=== PATIENT | male | born 1995 | race Caucasian/White ===

== ENCOUNTER 2021-11-23 19:44 | Inpatient (IN) | payer OTHER ==
[~2021-11-23] VITALS: Ht 188 cm; Wt 78.0 kg
[2021-11-23 20:29] LABS: BASOPHILS % (AUTO) 0.4 % (0-1); EOSINOPHILS % (AUTO) 0.1 % (0-6); HEMOGLOBIN 15.5 g/dl (14.0-17.9); LYMPHOCYTES # (AUTO) 1.6 X10'3 (1.1-4.8); LYMPHOCYTES % (AUTO) 12.7 % (21-51); MEAN CORPUSCULAR HEMOGLOBIN 31.2 PG (27.0-31.0); MEAN CORPUSCULAR HGB CONC 33.7 g/dL (33.0-36.5); MEAN CORPUSCULAR VOLUME 92.4 FL (78-98); MEAN PLATELET VOLUME 8.6 FL (7.4-10.4); MONOCYTES # (AUTO) 0.8 X10'3 (0-0.9); MONOCYTES % (AUTO) 6.4 % (2-12); NEUTROPHILS # (AUTO) 10.4 X10'3 (1.8-7.7); NEUTROPHILS % (AUTO) 80.4 % (42-75); PLATELET COUNT 260 X10'3 (140-440); RED BLOOD COUNT 4.98 X10'6 (4.70-6.10); RED CELL DISTRIBUTION WIDTH 12.6 % (11.5-14.5); WHITE BLOOD COUNT 12.9 X10'3 (4.5-11.0)
[2021-11-23 20:47] LABS: ALANINE AMINOTRANSFERASE 39 U/L (12-78); ALBUMIN 4.9 G/DL (3.4-5.0); ALBUMIN/GLOBULIN RATIO 1.3 (1.1-1.5); ALKALINE PHOSPHATASE 84 IU/L (46-116); ANION GAP 31 (8-16); ASPARTATE AMINO TRANSFERASE 11 U/L (10-37); BILIRUBIN,TOTAL 0.7 MG/DL (0.1-1.0); BLOOD UREA NITROGEN 12 MG/DL (7-18); BUN/CREATININE RATIO 10.1 (5.4-32.0); CALCIUM 9.6 MG/DL (8.5-10.1); CHLORIDE 95 MMOL/L (99-107); CREATININE 1.19 MG/DL (0.60-1.10); GLUCOSE 424 MG/DL (70-104); POTASSIUM 4.5 MMOL/L (3.5-5.1); SODIUM 133 MMOL/L (135-145); TOTAL PROTEIN 8.8 G/DL (6.4-8.2); eGFR 75 ML/MIN
[2021-11-23 20:53] LABS: TOTAL CARBON DIOXIDE 7.2 MMOL/L (24-32)
[2021-11-23] MEDS ORDERED: normal saline 1000ML IV soln IVB ONE ×2 (21:00→21:05)
[2021-11-23] MEDS ORDERED: Insulin Reg/NS 100units/100mL 100 ML IV PRN (21:05)
[2021-11-23] MEDS ORDERED: ondansetron/PF 4mg/2ml inj IV ONE (21:05)
[2021-11-23] MEDS ORDERED: insulin regular, human 10 units/0.1 ml syringe IV ONE (21:20)
[2021-11-23] MEDS ORDERED: acetaminophen 325mg tablet PO PRN (21:35)
[2021-11-23] MEDS ORDERED: mag hydrox/Alum hydrox/simeth 30ml oral suspension PO PRN (21:35)
[2021-11-23] MEDS ORDERED: magnesium 4gm in 100ml NS 100 ML IV PRN (21:35)
[2021-11-23] MEDS ORDERED: magnesium 2GM in 50ml NS 50 ML IV PRN (21:35)
[2021-11-23] MEDS ORDERED: potassium CL 10mEq/100ml bag 100 ML IV PRN (21:35)
[2021-11-23] MEDS ORDERED: ondansetron/PF 4mg/2ml inj IV PRN (21:35)
[2021-11-23] MEDS ORDERED: POTASSIUM BICARB 20meq eff tab 20 MEQ TABLET.EFF PO PRN (21:35)
[2021-11-23] MEDS ORDERED: magnesium hydroxide 30ml (MOM) UD suspension PO PRN (21:35)
[2021-11-23] MEDS ORDERED: magnesium Cl slow-release 64mg tablet PO PRN (21:35)
[2021-11-23 21:43] LABS: MAGNESIUM 1.9 MG/DL (1.5-2.4); PHOSPHORUS 4.7 MG/DL (2.3-4.5)
--- NOTE | 2021-11-23 23:06 | NUR ---
Call pharmacy to titrate Insulin drip. Per pharmacy titrate up 1 unit.
[2021-11-23 23:46] LABS: ALBUMIN 4.3 G/DL (3.4-5.0); ANION GAP 22 (8-16); BLOOD UREA NITROGEN 10 MG/DL (7-18); BUN/CREATININE RATIO 9.3 (5.4-32.0); CALCIUM 8.8 MG/DL (8.5-10.1); CHLORIDE 105 MMOL/L (99-107); CREATININE 1.08 MG/DL (0.60-1.10); GLUCOSE 215 MG/DL (70-104); POTASSIUM 3.8 MMOL/L (3.5-5.1); SODIUM 136 MMOL/L (135-145); eGFR 84 ML/MIN
[2021-11-23 23:51] LABS: TOTAL CARBON DIOXIDE 9.4 MMOL/L (24-32)
[2021-11-24] MEDS: normal saline 1000ml 1,000 ML IV SCH ×4 (00:10→18:00)
[2021-11-24 03:49] LABS: BASOPHILS % (AUTO) 0.3 % (0-1); EOSINOPHILS % (AUTO) 0.1 % (0-6); HEMATOCRIT 40.7 % (42.0-52.0); HEMOGLOBIN 13.9 g/dl (14.0-17.9); LYMPHOCYTES # (AUTO) 1.8 X10'3 (1.1-4.8); LYMPHOCYTES % (AUTO) 19.1 % (21-51); MEAN CORPUSCULAR HEMOGLOBIN 31.1 PG (27.0-31.0); MEAN CORPUSCULAR HGB CONC 34.3 g/dL (33.0-36.5); MEAN CORPUSCULAR VOLUME 90.8 FL (78-98); MONOCYTES % (AUTO) 10.8 % (2-12); NEUTROPHILS # (AUTO) 6.7 X10'3 (1.8-7.7); NEUTROPHILS % (AUTO) 69.7 % (42-75); PLATELET COUNT 204 X10'3 (140-440); RED BLOOD COUNT 4.48 X10'6 (4.70-6.10); WHITE BLOOD COUNT 9.5 X10'3 (4.5-11.0)
--- NOTE | 2021-11-24 06:15 | NUR ---
Receieved report from Iva.
--- NOTE | 2021-11-24 07:20 | NUR ---
Pt awake , resting quietly , no acute distress noted, pt continues to be monitored.
[2021-11-24] MEDS: docusate sod 100mg capsule PO SCH ×2 (07:31→20:00)
[2021-11-24 07:52] LABS: ALANINE AMINOTRANSFERASE 30 U/L (12-78); ALBUMIN 4.2 G/DL (3.4-5.0); ALBUMIN/GLOBULIN RATIO 1.1 (1.1-1.5); ALKALINE PHOSPHATASE 72 IU/L (46-116); ANION GAP 27 (8-16); ASPARTATE AMINO TRANSFERASE 13 U/L (10-37); BILIRUBIN,TOTAL 0.5 MG/DL (0.1-1.0); BLOOD UREA NITROGEN 10 MG/DL (7-18); BUN/CREATININE RATIO 9.2 (5.4-32.0); CALCIUM 8.3 MG/DL (8.5-10.1); CHLORIDE 106 MMOL/L (99-107); CREATININE 1.09 MG/DL (0.60-1.10); GLUCOSE 264 MG/DL (70-104); MAGNESIUM 1.8 MG/DL (1.5-2.4); POTASSIUM 4.6 MMOL/L (3.5-5.1); SODIUM 138 MMOL/L (135-145); TOTAL PROTEIN 8.1 G/DL (6.4-8.2); eGFR 83 ML/MIN
[2021-11-24 08:00] LABS: TOTAL CARBON DIOXIDE 5.2 MMOL/L (24-32)
[2021-11-24] MEDS: K and/or MAG REPLACEMENT MC SCH ×2 (08:00→20:32)
--- NOTE | 2021-11-24 08:09 | NUR ---
Pt's CO2 5.2, message sent to Dr Avalos .
--- NOTE | 2021-11-24 09:06 | NUR ---
Pt's blood sugar was 280mg/dl, messaged Dr Avalos to make him aware and also to ask about sliding scale.
--- NOTE | 2021-11-24 09:28 | NUR ---
paged dr alford at this time ,for dka .
--- NOTE | 2021-11-24 09:47 | NUR ---
Restarted Insulin drip as per protocol verified with Roberto ENAMORADO, Ila the charge nurse and Marcia PATEL Director made aware. Dr Avalos also messaged to make aware.
[2021-11-24] MEDS ORDERED: sodium bicarbonate (8.4%) inj. 50 MEQ in dextrose 5% water 500ml 250 ML IV PRN (10:00)
[2021-11-24] MEDS ORDERED: insulin regular, human U-100 3ml vial - multi-dose IV PRN (10:00)
[2021-11-24] MEDS ORDERED: potassium Cl 20 mEq SR tablet PO PRN ×2 (10:00)
[2021-11-24] MEDS ORDERED: potassium Cl 40MEQ/1/2NS 520ml 520 ML IV PRN ×2 (10:00)
[2021-11-24] MEDS ORDERED: sodium phosphate inj. 30 MMOL in dextrose 5%-water 250 ML IV PRN (10:00)
[2021-11-24] MEDS ORDERED: sodium phosphate inj. 15 MMOL in dextrose 5%-water 250 ML IV PRN (10:00)
[2021-11-24] MEDS ORDERED: sodium bicarbonate (8.4%) inj. 100 MEQ in dextrose 5% water 500ml 500 ML IV PRN (10:00)
--- NOTE | 2021-11-24 10:01 | NUR ---
Dr Avalos returned called,agreed for insulin drip to be restarted.
--- NOTE | 2021-11-24 10:15 | NUR ---
Pt sleeping but easily aroused, insulin drip infusing without difficulty, will continue to monitor for changes.
[2021-11-24] MEDS: Insulin Reg/NS 100units/100mL 100 ML IV SCH ×2 (10:40→16:53)
[2021-11-24 11:34] LABS: BLOOD UREA NITROGEN 10 MG/DL (7-18); BUN/CREATININE RATIO 8.1 (5.4-32.0); CALCIUM 8.2 MG/DL (8.5-10.1); CHLORIDE 104 MMOL/L (99-107); CREATININE 1.24 MG/DL (0.60-1.10); GLUCOSE 346 MG/DL (70-104); PHOSPHORUS 2.8 MG/DL (2.3-4.5); POTASSIUM 4.6 MMOL/L (3.5-5.1); SODIUM 136 MMOL/L (135-145); eGFR 72 ML/MIN
[2021-11-24 11:36] LABS: ANION GAP 27 (8-16)
[2021-11-24 11:38] LABS: TOTAL CARBON DIOXIDE < 5 MMOL/L (24-32)
--- NOTE | 2021-11-24 11:42 | NUR ---
paged dr. alford regarding critical co2 <5
--- NOTE | 2021-11-24 13:10 | NUR ---
Dr Avalos at bedside.
--- NOTE | 2021-11-24 14:11 | NUR ---
Pt reports feeling better, continues to be monitored.
--- NOTE | 2021-11-24 14:42 | NUR ---
Report given to Evelina in PCU.
[2021-11-24 15:00] VITALS: BP 136/62
[2021-11-24 15:31] LABS: ALBUMIN 3.8 G/DL (3.4-5.0); ANION GAP 16 (8-16); BLOOD UREA NITROGEN 11 MG/DL (7-18); BUN/CREATININE RATIO 8.3 (5.4-32.0); CALCIUM 8.5 MG/DL (8.5-10.1); CHLORIDE 107 MMOL/L (99-107); CREATININE 1.33 MG/DL (0.60-1.10); GLUCOSE 203 MG/DL (70-104); PHOSPHORUS 1.4 MG/DL (2.3-4.5); POTASSIUM 3.6 MMOL/L (3.5-5.1); SODIUM 136 MMOL/L (135-145); eGFR 66 ML/MIN
[2021-11-24] MEDS: potassium CL 20mEq in D5-1/2NS 1,000 ML IV PRN (16:56)
[2021-11-24] MEDS ORDERED: INSU100V43 SQ (17:28)
[2021-11-24 18:00] VITALS: BP 108/66
[2021-11-24] MEDS: Neutra Phos packet PO PRN ×2 (18:26→23:42)
--- NOTE | 2021-11-24 18:30 | NUR ---
Patient in room PCU 3023. I have received report from Evelina ENAMORADO and had the opportunity to ask questions and assume patient care.
[2021-11-24] MEDS ORDERED: K and/or MAG REPLACEMENT MC SCH (20:00)
[2021-11-24 20:10] LABS: ALBUMIN 3.6 G/DL (3.4-5.0); ANION GAP 8 (8-16); BLOOD UREA NITROGEN 11 MG/DL (7-18); BUN/CREATININE RATIO 9.6 (5.4-32.0); CALCIUM 8.4 MG/DL (8.5-10.1); CHLORIDE 105 MMOL/L (99-107); CREATININE 1.15 MG/DL (0.60-1.10); GLUCOSE 176 MG/DL (70-104); POTASSIUM 3.2 MMOL/L (3.5-5.1); SODIUM 130 MMOL/L (135-145); TOTAL CARBON DIOXIDE 16.6 MMOL/L (24-32); eGFR 78 ML/MIN
[2021-11-24] MEDS: POTASSIUM BICARB 20meq eff tab 20 MEQ TABLET.EFF PO PRN ×2 (20:30→23:42)
[2021-11-24 21:03] LABS: PHOSPHORUS 1.6 MG/DL (2.3-4.5)
[2021-11-24 22:00] VITALS: BP 95/59
--- NOTE | 2021-11-24 22:30 | NUR ---
IV fluids D5.45NS+20mEqKCL at 150cc/HR increased to 200cc/HR due to BS of 100. This is per protocol. One hour previous to this change, BS:150 and no changes were made per protocol. Phos level at 1445: 1.1. Phos replacement started. BMP and Phos@1930 1.6. MD notified. To cont. replacement of Phos per protocol. Pt somnolent, awakens w/verbal request, unable to stay awake.
[2021-11-24 23:36] LABS: ALBUMIN 3.6 G/DL (3.4-5.0); ANION GAP 7 (8-16); BLOOD UREA NITROGEN 10 MG/DL (7-18); BUN/CREATININE RATIO 10.8 (5.4-32.0); CALCIUM 8.5 MG/DL (8.5-10.1); CHLORIDE 110 MMOL/L (99-107); CREATININE 0.93 MG/DL (0.60-1.10); GLUCOSE 87 MG/DL (70-104); PHOSPHORUS 1.4 MG/DL (2.3-4.5); POTASSIUM 3.4 MMOL/L (3.5-5.1); SODIUM 136 MMOL/L (135-145); TOTAL CARBON DIOXIDE 19.3 MMOL/L (24-32); eGFR > 90 ML/MIN
[2021-11-25] MEDS ORDERED: Insulin Reg/NS 100units/100mL 100 ML IV SCH (01:00)
[2021-11-25] MEDS ORDERED: Insulin Reg/NS 100units/100mL 100 ML IV PRN (01:00)
--- NOTE | 2021-11-25 01:00 | NUR ---
Insulin Drip reduced to 3Units/HR per MD ord. following hourly Blood Sugars 2230: 101, 2320: 92, 0020: 84.
[2021-11-25 02:00] VITALS: BP 75/43
[2021-11-25] MEDS: potassium CL 20mEq in D5-1/2NS 1,000 ML IV PRN (03:56)
[2021-11-25 04:00] LABS: ALANINE AMINOTRANSFERASE 24 U/L (12-78); ALBUMIN 3.1 G/DL (3.4-5.0); ALBUMIN/GLOBULIN RATIO 0.9 (1.1-1.5); ALKALINE PHOSPHATASE 54 IU/L (46-116); ANION GAP 9 (8-16); ASPARTATE AMINO TRANSFERASE 6 U/L (10-37); BILIRUBIN,TOTAL 0.6 MG/DL (0.1-1.0); BLOOD UREA NITROGEN 10 MG/DL (7-18); BUN/CREATININE RATIO 12.7 (5.4-32.0); CALCIUM 8.2 MG/DL (8.5-10.1); CHLORIDE 109 MMOL/L (99-107); CREATININE 0.79 MG/DL (0.60-1.10); GLUCOSE 260 MG/DL (70-104); MAGNESIUM 1.9 MG/DL (1.5-2.4); PHOSPHORUS 2.1 MG/DL (2.3-4.5); POTASSIUM 3.8 MMOL/L (3.5-5.1); SODIUM 136 MMOL/L (135-145); TOTAL PROTEIN 6.4 G/DL (6.4-8.2); eGFR > 90 ML/MIN
[2021-11-25] MEDS ORDERED: potassium CL 20mEq in D5-1/2NS 1,000 ML IV SCH (04:00)
--- NOTE | 2021-11-25 04:00 | NUR ---
notified of increasing hourly blood sugars/0300: 266, 0400: 269. IV D5.45NS+20mEq reduced fr/250cc/HR to 100cc/HR. CO2 remains low@18.0. Pt remains on Insulin Drip.
[2021-11-25 04:23] LABS: BASOPHILS % (AUTO) 1.2 % (0-1); EOSINOPHILS # (AUTO) 0.1 X10'3 (0-0.9); EOSINOPHILS % (AUTO) 1.7 % (0-6); HEMATOCRIT 36.2 % (42.0-52.0); HEMOGLOBIN 12.7 g/dl (14.0-17.9); LYMPHOCYTES # (AUTO) 1.4 X10'3 (1.1-4.8); LYMPHOCYTES % (AUTO) 33.9 % (21-51); MEAN CORPUSCULAR HEMOGLOBIN 31.4 PG (27.0-31.0); MEAN CORPUSCULAR HGB CONC 35.1 g/dL (33.0-36.5); MEAN CORPUSCULAR VOLUME 89.5 FL (78-98); MEAN PLATELET VOLUME 8.7 FL (7.4-10.4); MONOCYTES # (AUTO) 0.5 X10'3 (0-0.9); MONOCYTES % (AUTO) 12.2 % (2-12); NEUTROPHILS # (AUTO) 2.1 X10'3 (1.8-7.7); PLATELET COUNT 125 X10'3 (140-440); RED BLOOD COUNT 4.04 X10'6 (4.70-6.10); RED CELL DISTRIBUTION WIDTH 12.9 % (11.5-14.5); WHITE BLOOD COUNT 4.2 X10'3 (4.5-11.0)
[2021-11-25] MEDS: Neutra Phos packet PO PRN (04:45)
--- NOTE | 2021-11-25 07:20 | NUR ---
Problems reprioritized. Patient report given, questions answered & plan of care reviewed with Evelina ENAMORADO.
[2021-11-25] MEDS: docusate sod 100mg capsule PO SCH (08:00)
[2021-11-25 08:38] LABS: ANION GAP 8 (8-16); BLOOD UREA NITROGEN 9 MG/DL (7-18); BUN/CREATININE RATIO 13.2 (5.4-32.0); CALCIUM 8.1 MG/DL (8.5-10.1); CHLORIDE 110 MMOL/L (99-107); CREATININE 0.68 MG/DL (0.60-1.10); GLUCOSE 184 MG/DL (70-104); PHOSPHORUS 1.4 MG/DL (2.3-4.5); POTASSIUM 3.4 MMOL/L (3.5-5.1); SODIUM 138 MMOL/L (135-145); TOTAL CARBON DIOXIDE 20.4 MMOL/L (24-32); eGFR > 90 ML/MIN
[2021-11-25] MEDS ORDERED: insulin glargine (Lantus) pen - multi-dose SQ SCH (09:00)
[2021-11-25 09:39] LABS: HEMOGLOBIN A1C 12.9 % (4.5-6.2)
--- NOTE | 2021-11-25 10:42 | NUR ---
[id number] MESSAGE: [id number] Víctor Raya & his mom is requesting Humalog and syringes to be added to RX with the lantus. Can you please advise? thank you Evelina ENAMORADO [id number]
--- NOTE | 2021-11-25 13:20 | NUR ---
[id number] MESSAGE: Víctor Gillian [id number] is at the pharmacy they will not take a written RX and want it to say how many units and how often & e-scripted to Shelbie millard Nanda and [address] Please advise. Thank you Evelina ENAMORADO [phone]
== END 2021-11-25 11:35 | disposition home or self-care (01) | DRG 638 ==
LOC: ER 19:45 → ED HOLD 21:34 → EDBEDREQDT 11-24 15:26 → EDBEDREQTM 11-24 15:26 → PCU 3S 11-24 16:08 → EDBEDREQ 11-24 16:34 → EDBEDREQTM 11-24 16:34 → PCU 3S 11-24 16:37
PROVIDERS: ADMIT Internal Medicine; ATTEND Internal Medicine
DX: E10.10 Type 1 diabetes mellitus with ketoacidosis without coma (principal); N17.9 Acute kidney failure, unspecified; Z20.822 Contact with and (suspected) exposure to COVID-19; E86.0 Dehydration; F12.90 Cannabis use, unspecified, uncomplicated; Z96.41 Presence of insulin pump (external) (internal); E83.39 Other disorders of phosphorus metabolism; Z79.4 Long term (current) use of insulin; Z88.2 Allergy status to sulfonamides
CPT/HCPCS: 36415; 71045; 80048; 80053; 82948; 83036; 83735; 83880; 84100; 84484; 85025; 87635; 93005; 96361; 96374; 99291; G0378; J1815; J2405; J3480; J7030; J7042